=== PATIENT | female | born 1955 | race Caucasian/White ===

== ENCOUNTER 2017-10-14 17:56 | Emergency (ER) | payer BC ==
[~2017-10-14] VITALS: Ht 154.9 cm; Wt 104.0 kg
[~2017-10-14 17:56] MED LIST: ALLEGRA ALLERG180 MG PO; ALLEGRA180 MG PO; ALPRAZOLAM0.5 MG PO; AMARYL2 MG PO; AMARYL4 MG PO; ANTIVERT25 MG PO; ASPIR-LOW81 MG PO; ASPIRIN81 M1 PO; AUGMENTIN500 MG PO; AZO CRANBERRY1 EAC1 PO; BENADRYL ALLERG25 MG PO; BENADRYL25 MG PO; BIOTIN 5000MCG PO; BISOPROLOL-HCT1 EAC2 PO; CATAPRES0.1 MG PO; CIPRO500 MG PO; CLOBEX59 M1 TP; COZAAR50 MG PO; DULCOLAX5 MG PO; ENDOCET 10-3251 EACH PO; FOLIC ACID1 MG PO; FUROSEMIDE40 MG PO; GLIMEPIRIDE2 MG PO; GLUCOPHAGE1000 M1 PO; INDOMETHACIN50 MG PO; JANUVIA100 MG PO; KLOR-CON M2020 MEQ PO; LASIX40 MG PO; LATANOPROST2.5 ML BOTH EYES; LOTRISONE15 GM TP; LUMIGAN 0.50 DROP/2. BOTH EYES; MEGA BIOTIN10000 MCG PO; METFORMIN HCL1000 MG PO; METHOTREXATE2.5 MG PO; MIRALAX17 GM PO; MYCOSTATIN 100,60 ML PO; NASACORT AQ16.5 GM BOTH NARES; OLUX-E 0.05% FO50 GM TP; OXYCONTIN15 MG PO; PANTOPRAZOLE SO40 MG PO; PERCOCET 10/1 TABLET PO; PERCOCET 5/31 TABLET PO; PLAQUENIL200 MG PO; PRILOSEC20 MG PO; PRINIVIL10 MG PO; PROTONIX20 MG PO; PROTONIX40 MG PO; SIMVASTATIN40 MG PO; STOOL SOFTENER100 MG PO; TRIAMCINOLONE16.5 GM BOTH NARES; VAGIFEM10 MCG VG; VENTOLIN HFA18 GM IH; XALATAN2.5 ML BOTH EYES; XANAX0.5 MG PO; ZIAC 5/6.251 TABLET PO; ZOCOR40 MG PO; [UNRECOGNIZED DRUG - OTHER] PO
[2017-10-14 19:01] LABS: HEMATOCRIT 31.3 % (36.0-46.0); HEMOGLOBIN 10.8 G/DL (11.9-15.5); MCH 36.9 PG (29.0-34.0); MCHC 34.5 G/DL (30.0-36.0); MCV 106.8 FL (83-99); NRBC (%) 0.2 /100 WBC (0-0); PLATELET COUNT 228 K/uL (156-360); RBC DIS.WIDTH-CV 14.9 % (11.8-14.6); RBC DIS.WIDTH-SD 57.6 % (39-53); RED BLOOD COUNT 2.93 M/uL (3.80-5.20); WHITE BLOOD COUNT 9.5 K/uL (4.1-10.2)
[2017-10-14 19:16] LABS: CHLORIDE 97 mEq/L (99-109); POTASSIUM 4.6 mEq/L (3.7-5.4); SODIUM 133 mEq/L (136-147)
[2017-10-14 19:18] LABS: GLUCOSE 366 mg/dL (70-99); TOTAL PROTEIN 7.2 g/dL (6.4-8.3)
[2017-10-14 19:21] LABS: ALKALINE PHOSPHATASE 142 IU/L (3-129)
[2017-10-14 19:22] LABS: CREATININE 1.7 mg/dL (0.6-1.3); GFR ESTIMATE (CALCULATED) 33 mL/min/
[2017-10-14 19:23] LABS: AST (GOT) 19 IU/L (2-34); UREA NITROGEN (BUN) 38 mg/dL (9-23)
[2017-10-14 19:25] LABS: ALT (GPT) 14 IU/L (3-49)
[2017-10-14 20:31] LABS: CREATINE KINASE 43 IU/L (1-294)
[2017-10-14 21:54] LABS: APPEARANCE CLEAR ((CLEAR)); BILIRUBIN NEGATIVE; BLOOD NEGATIVE; COLOR YELLOW ((YELLOW)); GLUCOSE (STRIP) >=500; KETONES NEGATIVE; LEUKOCYTES NEGATIVE; NITRITE NEGATIVE; PROTEIN (STRIP) NEGATIVE; SPECIFIC GRAVITY 1.017 (1.000-1.030); UCUL ADDED? NO; UROBILINOGEN 0.2 MG/DL (0.2-1.0)
[2017-10-14 22:48] LABS: CHLORIDE 99 mEq/L (99-109); POTASSIUM 4.6 mEq/L (3.7-5.4); SODIUM 136 mEq/L (136-147)
[2017-10-14 22:50] LABS: GLUCOSE 354 mg/dL (70-99)
[2017-10-14 22:54] LABS: CREATININE 1.5 mg/dL (0.6-1.3); GFR ESTIMATE (CALCULATED) 38 mL/min/
[2017-10-14 22:55] LABS: UREA NITROGEN (BUN) 38 mg/dL (9-23)
[2017-10-15 01:21] LABS: CHLORIDE 102 mEq/L (99-109); POTASSIUM 4.5 mEq/L (3.7-5.4); SODIUM 136 mEq/L (136-147)
[2017-10-15 01:23] LABS: GLUCOSE 295 mg/dL (70-99)
[2017-10-15 01:27] LABS: CREATININE 1.4 mg/dL (0.6-1.3); GFR ESTIMATE (CALCULATED) 41 mL/min/
[2017-10-15 01:28] LABS: UREA NITROGEN (BUN) 37 mg/dL (9-23)
[2017-10-15 01:38] VITALS: BP 142/67
[2017-10-15 09:04] LABS: HEMOGLOBIN A1c (GLYCOHEMOGLOB) 10.5 % (Below 5.7)
== END 2017-10-15 01:39 | disposition home or self-care (01) ==
LOC: EME 17:56
PROVIDERS: Physician Assistant
DX: R10.2 Pelvic and perineal pain (principal); N28.9 Disorder of kidney and ureter, unspecified; E11.65 Type 2 diabetes mellitus with hyperglycemia; R11.0 Nausea; K76.0 Fatty (change of) liver, not elsewhere classified; K42.9 Umbilical hernia without obstruction or gangrene; N81.6 Rectocele; I10 Essential (primary) hypertension; E78.5 Hyperlipidemia, unspecified; J45.909 Unspecified asthma, uncomplicated; Z79.82 Long term (current) use of aspirin; Z79.84 Long term (current) use of oral hypoglycemic drugs; E66.9 Obesity, unspecified; Z68.41 Body mass index [BMI] 40.0-44.9, adult; Z90.710 Acquired absence of both cervix and uterus
CPT/HCPCS: 74176; 80048; 80048 91; 80053; 81003; 82550; 82948; 83036; 85027; 99281; 99285; J7030

== ENCOUNTER 2017-12-23 18:57 | Inpatient (IN) | payer BC ==
[~2017-12-23] VITALS: Ht 152.4 cm; Wt 104.8 kg
[~2017-12-23 18:57] MED LIST changes: -AMARYL2 MG PO; -CLOBEX59 M1 TP; +LASIX20 MG PO; +XANAX1 MG PO; -ZOCOR40 MG PO; +ZOCOR80 MG PO
[2017-12-23 20:03] LABS: APPEARANCE CLEAR ((CLEAR)); BILIRUBIN NEGATIVE; BLOOD NEGATIVE; COLOR STRAW ((YELLOW)); GLUCOSE (STRIP) >=500; HEMATOCRIT 30.2 % (36.0-46.0); HEMOGLOBIN 10.3 G/DL (11.9-15.5); KETONES NEGATIVE; LEUKOCYTES NEGATIVE; MCH 37.3 PG (29.0-34.0); MCHC 34.1 G/DL (30.0-36.0); MCV 109.4 FL (83-99); NITRITE POSITIVE; NRBC (%) 0.4 /100 WBC (0-0); PLATELET COUNT 283 K/uL (156-360); PROTEIN (STRIP) NEGATIVE; RBC DIS.WIDTH-CV 16.1 % (11.8-14.6); RBC DIS.WIDTH-SD 63.7 % (39-53); RED BLOOD COUNT 2.76 M/uL (3.80-5.20); SPECIFIC GRAVITY 1.015 (1.000-1.030); UROBILINOGEN 0.2 MG/DL (0.2-1.0); WHITE BLOOD COUNT 11.8 K/uL (4.1-10.2)
[2017-12-23 20:06] LABS: BACTERIA RARE /HPF; EPITHELIAL CELLS NONE SEEN /HPF; MUCUS NONE SEEN /LPF; RED BLOOD CELLS 0-5 /HPF (0-5); UCUL ADDED? YES; WHITE BLOOD CELLS 15-20 /HPF (0-5)
[2017-12-23 20:14] LABS: CHLORIDE 96 mEq/L (99-109); POTASSIUM 5.6 mEq/L (3.7-5.4); SODIUM 135 mEq/L (136-147)
[2017-12-23 20:19] LABS: CREATININE 1.7 mg/dL (0.6-1.3); GFR ESTIMATE (CALCULATED) 32 mL/min/
[2017-12-23 20:20] LABS: UREA NITROGEN (BUN) 42 mg/dL (9-23)
[2017-12-23 20:23] LABS: GLUCOSE 528 mg/dL (70-99)
[2017-12-23 20:26] LABS: TROP-I INTERPRETATION NEGATIVE; TROPONIN-I < 0.01 ng/mL (0.0-0.30)
[2017-12-23 20:32] LABS: CARBON DIOXIDE (BICARBONATE) 32.4 MEQ/L (20-31)
[2017-12-23 21:19] LABS: ALBUMIN 4.2 g/dL (3.2-4.8)
[2017-12-23 21:22] LABS: TOTAL PROTEIN 7.4 g/dL (6.4-8.3)
[2017-12-23 21:24] LABS: TOTAL BILIRUBIN 0.9 mg/dL (0.0-1.0)
[2017-12-23 21:25] LABS: ALKALINE PHOSPHATASE 153 IU/L (3-129)
[2017-12-23 21:27] LABS: AST (GOT) 17 IU/L (2-34); DIRECT BILIRUBIN 0.3 mg/dL (0.0-0.3)
[2017-12-23 21:28] LABS: ALT (GPT) 16 IU/L (3-49); LIPASE 43 U/L (1.0-51.0)
[2017-12-23] MEDS ORDERED: VALACYCLOVIR1000 MG PO (22:06)
[2017-12-23] MEDS ORDERED: ESTRACE42.5 GM VG (22:06)
[2017-12-23] MEDS ORDERED: HUMALOG MI100 UNIT/5 SC (22:07)
[2017-12-23] MEDS ORDERED: ALDACTONE50 MG PO (22:07)
[2017-12-23] MEDS ORDERED: MUCINEX1200 MG PO (22:07)
[2017-12-23] MEDS ORDERED: ALLOPURINOL100 MG PO (22:08)
[2017-12-23] MEDS ORDERED: NIZORAL 2% CREA15 GM TP (22:08)
[2017-12-23] MEDS ORDERED: IMURAN50 MG PO (22:09)
[2017-12-23] MEDS ORDERED: IMDUR30 MG PO (22:09)
[2017-12-23] MEDS ORDERED: CYANOCOBALAM1000 MCG PO (22:09)
[2017-12-23] MEDS ORDERED: IRON325 M1 PO (22:09)
[2017-12-23] MEDS ORDERED: LYRICA100 MG PO (22:09)
[2017-12-23 22:45] LABS: CREATINE KINASE 51 IU/L (1-294)
[2017-12-24 00:10] VITALS: BP 138/65
[2017-12-24 02:51] LABS: CHLORIDE 104 mEq/L (99-109); POTASSIUM 4.5 mEq/L (3.7-5.4); SODIUM 140 mEq/L (136-147)
[2017-12-24 02:53] LABS: GLUCOSE 334 mg/dL (70-99)
[2017-12-24 02:57] LABS: CREATININE 1.3 mg/dL (0.6-1.3); GFR ESTIMATE (CALCULATED) 44 mL/min/
[2017-12-24 02:58] LABS: UREA NITROGEN (BUN) 38 mg/dL (9-23)
[2017-12-24 03:05] LABS: TROP-I INTERPRETATION NEGATIVE; TROPONIN-I < 0.01 ng/mL (0.0-0.30)
[2017-12-24 07:08] LABS: HEMATOCRIT 25.5 % (36.0-46.0); HEMOGLOBIN 8.4 G/DL (11.9-15.5); MCH 36.5 PG (29.0-34.0); MCHC 32.9 G/DL (30.0-36.0); MCV 110.9 FL (83-99); NRBC (%) 0.2 /100 WBC (0-0); PLATELET COUNT 224 K/uL (156-360); RBC DIS.WIDTH-CV 16.3 % (11.8-14.6); RBC DIS.WIDTH-SD 65.2 % (39-53); WHITE BLOOD COUNT 9.3 K/uL (4.1-10.2)
[2017-12-24 07:31] LABS: CHLORIDE 104 MEQ/L (99-109); CREATININE 1.2 MG/DL (0.6-1.3); GFR ESTIMATE (CALCULATED) 49 mL/min/; GLUCOSE 287 mg/dL (70-99); POTASSIUM 4.6 MEQ/L (3.7-5.4); SODIUM 138 MEQ/L (136-147); UREA NITROGEN (BUN) 36 mg/dL (9-23)
[2017-12-24 07:37] LABS: TROP-I INTERPRETATION NEGATIVE; TROPONIN-I < 0.01 ng/mL (0.0-0.30)
[2017-12-24 08:58] VITALS: BP 125/57
[2017-12-24 10:06] LABS: HEMOGLOBIN A1c (GLYCOHEMOGLOB) 9.3 % (Below 5.7)
[2017-12-24 11:49] LABS: IRON 327 MCG/DL (35-150); TRANSFERRIN (TIBC) 275.8 mg/dL (215-380)
[2017-12-24 11:53] LABS: FERRITIN 77 NG/ML (10-291)
[2017-12-24 11:55] VITALS: BP 122/57
[2017-12-24 11:56] LABS: TRANSFERRIN SATUR. 119 % (20-55)
[2017-12-24 13:43] LABS: FOLIC ACID (FOLATE) > 22.0 NG/ML (5.0-22.0)
[2017-12-24 15:36] VITALS: BP 131/60
[2017-12-24 20:01] VITALS: BP 131/63
[2017-12-25 00:28] VITALS: BP 120/58
[2017-12-25 04:00] VITALS: BP 133/61
[2017-12-25 05:25] LABS: HEMATOCRIT 28.1 % (36.0-46.0); HEMOGLOBIN 9.2 G/DL (11.9-15.5); MCH 36.1 PG (29.0-34.0); MCHC 32.7 G/DL (30.0-36.0); MCV 110.2 FL (83-99); NRBC (%) 0.5 /100 WBC (0-0); PLATELET COUNT 265 K/uL (156-360); RBC DIS.WIDTH-CV 15.9 % (11.8-14.6); RBC DIS.WIDTH-SD 63.9 % (39-53); RED BLOOD COUNT 2.55 M/uL (3.80-5.20); WHITE BLOOD COUNT 8.2 K/uL (4.1-10.2)
[2017-12-25 05:57] LABS: CHLORIDE 103 MEQ/L (99-109); CREATININE 1.2 MG/DL (0.6-1.3); GFR ESTIMATE (CALCULATED) 49 mL/min/; GLUCOSE 180 mg/dL (70-99); POTASSIUM 5.2 MEQ/L (3.7-5.4); SODIUM 137 MEQ/L (136-147); UREA NITROGEN (BUN) 34 mg/dL (9-23)
[2017-12-25 08:59] VITALS: BP 118/56
[2017-12-25 12:39] VITALS: BP 127/60
[2017-12-25 15:50] VITALS: BP 135/64
[2017-12-25 21:15] VITALS: BP 131/59
[2017-12-26 01:05] VITALS: BP 136/62
[2017-12-26 04:15] VITALS: BP 117/56
[2017-12-26 08:02] VITALS: BP 141/59
== END 2017-12-26 12:45 | disposition home or self-care (01) | DRG 683 ==
LOC: EME 18:57 → 4EAST 23:12 → EDOF 23:12 → ENRESERV 23:17 → 4EAST 12-24 00:32 → ENPENDDIS 12-26 → 4EAST 12-26 12:45
PROVIDERS: Emergency Medicine; Hospitalist; Internal Medicine Cardiovascular Disease
DX: N17.9 Acute kidney failure, unspecified (principal); I25.110 Atherosclerotic heart disease of native coronary artery with unstable angina pectoris; E87.0 Hyperosmolality and hypernatremia; E11.65 Type 2 diabetes mellitus with hyperglycemia; N30.00 Acute cystitis without hematuria; M33.13 Other dermatomyositis without myopathy; E87.5 Hyperkalemia; I47.1 Supraventricular tachycardia; I35.0 Nonrheumatic aortic (valve) stenosis; E87.2 Acidosis; N18.9 Chronic kidney disease, unspecified; I50.32 Chronic diastolic (congestive) heart failure; I13.0 Hypertensive heart and chronic kidney disease with heart failure and stage 1 through stage 4 chronic kidney disease, or unspecified chronic kidney disease; M54.40 Lumbago with sciatica, unspecified side; R09.89 Other specified symptoms and signs involving the circulatory and respiratory systems; M19.90 Unspecified osteoarthritis, unspecified site; D50.9 Iron deficiency anemia, unspecified; I08.0 Rheumatic disorders of both mitral and aortic valves; E66.9 Obesity, unspecified; B96.20 Unspecified Escherichia coli [E. coli] as the cause of diseases classified elsewhere; E86.0 Dehydration; K21.9 Gastro-esophageal reflux disease without esophagitis; G89.4 Chronic pain syndrome; H40.9 Unspecified glaucoma; E78.5 Hyperlipidemia, unspecified; E11.43 Type 2 diabetes mellitus with diabetic autonomic (poly)neuropathy; F41.9 Anxiety disorder, unspecified; F32.9 Major depressive disorder, single episode, unspecified; E11.22 Type 2 diabetes mellitus with diabetic chronic kidney disease; Z90.12 Acquired absence of left breast and nipple; Z85.3 Personal history of malignant neoplasm of breast; Z79.4 Long term (current) use of insulin; R79.1 Abnormal coagulation profile; Z68.41 Body mass index [BMI] 40.0-44.9, adult; Z87.19 Personal history of other diseases of the digestive system; Z95.1 Presence of aortocoronary bypass graft; Z90.710 Acquired absence of both cervix and uterus; Z83.3 Family history of diabetes mellitus; Z82.49 Family history of ischemic heart disease and other diseases of the circulatory system; M60.9 Myositis, unspecified; I70.0 Atherosclerosis of aorta
CPT/HCPCS: 71046; 71250; 78582; 80048; 80048 91; 80076; 81003; 82010; 82550 91; 82607; 82728; 82746; 82803; 82948; 83036; 83540; 83605; 83690; 83930; 84466; 84484; 85027; 85379; 87040; 87077; 87086; 87186; 93005; 99281; 99285; A9540; A9567; J0696; J1650; J1815; J2405; J7030; J7500

== ENCOUNTER 2018-03-20 11:03 | Emergency (ER) | payer BC ==
[~2018-03-20] VITALS: Ht 152.4 cm; Wt 104.0 kg
[~2018-03-20 11:03] MED LIST changes: +ALDACTONE50 MG PO; +ALLOPURINOL100 MG PO; +CYANOCOBALAM1000 MCG PO; +ESTRACE42.5 GM VG; +HUMALOG MI100 UNIT/5 SC; +IMDUR30 MG PO; +IMURAN50 MG PO; +IRON325 M1 PO; +LYRICA100 MG PO; +MUCINEX1200 MG PO; +NIZORAL 2% CREA15 GM TP; +VALACYCLOVIR1000 MG PO
[2018-03-20 14:09] LABS: HEMATOCRIT 26.9 % (36.0-46.0); HEMOGLOBIN 8.9 G/DL (11.9-15.5); MCH 35.6 PG (29.0-34.0); MCHC 33.1 G/DL (30.0-36.0); MCV 107.6 FL (83-99); PLATELET COUNT 175 K/uL (156-360); RBC DIS.WIDTH-CV 20.4 % (11.8-14.6); RBC DIS.WIDTH-SD 80.5 % (39-53); WHITE BLOOD COUNT 15.5 K/uL (4.1-10.2)
[2018-03-20 14:11] LABS: BASOPHIL (%) 0.1 % (0-1); EOSINOPHIL (%) 0.1 % (0-5); IMMATURE GRANULOCYTE (%) 1.2 % (0.0-0.7); LYMPHOCYTE (%) 1.3 % (15-42); LYMPHOCYTE COUNT 0.2 K/uL (1.0-2.8); MONOCYTE (%) 5.5 % (3-12); MONOCYTE COUNT 0.9 K/uL (0-0.8); NEUTROPHIL (%) 91.8 % (45-76); NEUTROPHIL COUNT 14.3 K/uL (1.8-6.4)
[2018-03-20 14:19] LABS: CHLORIDE 104 mEq/L (99-109); POTASSIUM 4.3 mEq/L (3.7-5.4); SODIUM 137 mEq/L (136-147)
[2018-03-20 14:21] LABS: GLUCOSE 249 mg/dL (70-99)
[2018-03-20 14:25] LABS: CREATININE 1.2 mg/dL (0.6-1.3); GFR ESTIMATE (CALCULATED) 49 mL/min/
[2018-03-20 14:26] LABS: UREA NITROGEN (BUN) 22 mg/dL (9-23)
[2018-03-20 14:32] LABS: APPEARANCE CLOUDY ((CLEAR)); BILIRUBIN NEGATIVE; BLOOD MODERATE; COLOR YELLOW ((YELLOW)); GLUCOSE (STRIP) 150; KETONES NEGATIVE; LEUKOCYTES TRACE; NITRITE NEGATIVE; PROTEIN (STRIP) 100; SPECIFIC GRAVITY 1.016 (1.000-1.030); UROBILINOGEN 0.2 MG/DL (0.2-1.0)
[2018-03-20 14:53] LABS: BACTERIA 1+ /HPF; EPITHELIAL CELLS RARE /HPF; MUCUS NONE SEEN /LPF; RED BLOOD CELLS RARE /HPF (0-5); WHITE BLOOD CELLS RARE /HPF (0-5)
[2018-03-20 14:55] LABS: AMORPHOUS URATES CRYSTALS 2+; COARSE GRANULAR CASTS RARE /LPF
[2018-03-20 16:08] LABS: CARBOXY HGB 2.2 % (0-5); COMMENTS - BLOOD GASES A+C+; DEVICE NC; METHEMOGLOBIN 0.7 % (0-1.5); O2 FLOW 4 L/MIN; PCO2 36 mm Hg (35-45); PO2 131 mm Hg (80-100); SITE RR; pH 7.41 (7.35-7.45)
[2018-03-20 16:09] LABS: BASE EXCESS -1.6 mEq/L (-3 to +3); BICARBONATE 22.8 mEq/L (22-26)
[2018-03-20 17:34] VITALS: BP 121/63
== END 2018-03-20 17:35 | disposition short-term general hospital (02) ==
LOC: EME 11:03
PROVIDERS: Emergency Medicine
PROC: 06HY33Z Insertion of Infusion Device into Lower Vein, Percutaneous Approach (ICD-10-PCS; principal; 2018-03-20)
DX: T81.4XXA Infection following a procedure, initial encounter (principal); R50.82 Postprocedural fever; Z95.1 Presence of aortocoronary bypass graft; Z98.890 Other specified postprocedural states; R00.0 Tachycardia, unspecified; Z88.1 Allergy status to other antibiotic agents; J45.909 Unspecified asthma, uncomplicated; I10 Essential (primary) hypertension; E78.5 Hyperlipidemia, unspecified; E11.9 Type 2 diabetes mellitus without complications; Z79.4 Long term (current) use of insulin; Z79.82 Long term (current) use of aspirin; Z90.12 Acquired absence of left breast and nipple
CPT/HCPCS: 36600; 71045; 80048; 81003; 83605; 85025; 87040; 87070; 87075; 87077; 87147; 87186; 87205; 87801; 93005; 99281; 99285; C1751; C1753; J2543; J3370; J7030